=== PATIENT | male | born 1945 | race Caucasian/White ===

== ENCOUNTER → 2020-09-15 10:25 | Outpatient (CLI) | payer OTHER, SELFPAY ==
--- NOTE | 2020-09-15 10:32 | DI.CT.S_ITS ---
PROCEDURE: CT LUMBAR SPINE WO CON INDICATIONS: Arthrodesis status TECHNIQUE: Noncontrast 3 mm thick sections acquired from the T12 level to the sacrum. Sagittal and coronal reformats were constructed. For radiation dose reduction, the following was used: automated exposure control. COMPARISON: [facility] [place], CR, XR LUMBAR SPINE 2 OR 3 VIEWS, 08/13/2020, 9:29. FINDINGS: Image quality: Diagnostic. Beam hardening artifacts from lower lumbar spine fusion hardware is seen.. Bones: As seen on lumbar spine radiograph, patient is status post posterior fusion at L4 through S1 levels. There is 2.2 centimeter anterolisthesis of L5 on S1. Minimal retrolisthesis at L2-3 level is seen. No acute compression fracture. No gross hardware loosening or failure. T12-L1: Unremarkable. L1-L2: Unremarkable. L2-L3: Mild degenerative endplate changes are seen. There is suggestion of broad-based disc bulge and bilateral facet arthrosis with hypertrophy of ligamentum flavum. Mild central canal stenosis is seen, no significant neural foraminal narrowing. L3-L4: Bilateral facet arthrosis is seen. Mild degenerative endplate changes also noted. There is diffuse disc bulge causing mild central canal stenosis, and mild left-sided neural foraminal narrowing. L4-L5: Post laminectomy changes are seen. Intervertebral spacer is noted. Bilateral facet arthrosis is seen. No significant central canal stenosis. There is mild to moderate bilateral neural foraminal narrowing slightly worse on the left side. L5-S1: Post laminectomy changes are noted. Bilateral facet arthrosis is seen. There is suggestion of moderate bilateral neural foraminal narrowing. Evaluation is limited due to significant beam hardening artifacts. Soft tissues: No retroperitoneal masses or hematomas. Visualized aorta is normal in caliber. IMPRESSION: 1. Post laminectomy and fusion changes are noted at L4 through S1 levels. 2.2 cm anterolisthesis of L5 on S1. Minimal retrolisthesis at L2-3 level. No acute compression fracture. No gross hardware loosening or failure. 2. Bilateral facet arthrosis at L4-5 and L5-S1 levels causing [id number] bilateral neural foraminal narrowing as described above. 3. Suggestion of degenerative disc disease and bilateral facet arthrosis at L2-3 and L3-4 levels causing mild central canal stenosis and bilateral neural foraminal narrowing as above. Dictated by: Sunny Lomax M.D. on 09/15/2020 at 11:50 Approved by: Sunny Lomax M.D. on 09/15/2020 at 14:15
== END ==
PROVIDERS: PCP Hospitalist; Referring Provider Orthopaedic Surgery Orthopaedic Surgery of the Spine; Visit Provider Orthopaedic Surgery Orthopaedic Surgery of the Spine
DX: M47.816 Spondylosis without myelopathy or radiculopathy, lumbar region (principal); M47.817 Spondylosis without myelopathy or radiculopathy, lumbosacral region; M48.061 Spinal stenosis, lumbar region without neurogenic claudication; M48.07 Spinal stenosis, lumbosacral region; Z98.1 Arthrodesis status
CPT/HCPCS: 72131